=== PATIENT | male | born 1970 | race Two or more races ===

== ENCOUNTER 2019-03-08 08:15 | Day surgery (SDC) | payer OTHER ==
[2019-02-16 10:59] LABS: ABSOLUTE BASOPHILS # (AUTO) 0.1 10^3/uL (0.0-0.2); ABSOLUTE EOSINOPHILS # (AUTO) 0.2 10^3/uL (0.0-0.6); ABSOLUTE LYMPHOCYTES (AUTO) 1.8 10^3/uL (0.5-4.7); ABSOLUTE MONOCYTES (AUTO) 0.4 10^3/uL (0.1-1.4); ABSOLUTE NEUT (AUTO) 5.5 10^3/uL (1.7-8.2); BASOPHILS % (AUTO) 0.9 % (0-2); EOSINOPHILS % (AUTO) 2.8 % (0-6); HEMATOCRIT 41.1 % (37.9-51.0); HEMOGLOBIN 14.7 g/dL (13.5-17.0); LYMPHOCYTES % (AUTO) 21.9 % (13-45); MEAN CORPUSCULAR HEMOGLOBIN 29.9 pg (27.0-33.4); MEAN CORPUSCULAR HGB CONC 35.8 g/dL (32.0-36.0); MEAN CORPUSCULAR VOLUME 83 fl (80-97); MONOCYTES % (AUTO) 5.5 % (3-13); PLATELET COUNT 217 10^3/uL (150-450); RED BLOOD COUNT 4.93 10^6/uL (4.35-5.55); RED CELL DISTRIBUTION WIDTH 13.7 % (11.5-14.0); SEGMENTED NEUTROPHILS % (AUTO) 68.9 % (42-78); TOTAL CELLS COUNTED % (AUTO) 100 %
[2019-02-16 11:20] LABS: ANION GAP 8 (5-19); BLOOD UREA NITROGEN 17 mg/dL (7-20); CALCIUM 9.4 mg/dL (8.4-10.2); CARBON DIOXIDE 30 mmol/L (22-30); CHLORIDE 103 mmol/L (98-107); GLUCOSE 102 mg/dL (75-110); POTASSIUM 4.1 mmol/L (3.6-5.0)
[~2019-03-08 08:15] MED LIST: CEFAZOLIN 1 GM/D5W RTU 1 GM/50 ML RTUPB IV PRN; DEXAMETHASONE SOD PHOSPHATE INJ 4 MG/1 ML VIAL ONE; GLYCOPYRROLATE 1 MG/5 ML VIAL ONE; KETOROLAC TROMETHAMINE 60 MG/2 ML SDV ONE; LACTATED RINGERS 1000 ML IV PRN; NEOSTIGMINE METHYLSULFATE 10 MG/10 ML VIAL ONE; ONDANSETRON HCL INJ/PF 4 MG/2 ML SDV ONE; ROCURONIUM BROMIDE INJ 50 MG/5 ML VIAL IV ONE; SUCCINYLCHOLINE CHLORIDE INJ 200 MG/10 ML VIAL ONE
[2019-03-08] MEDS ORDERED: PROPOFOL INJ 200 MG/20 ML VIAL IV ONE ×2 (08:33→10:50)
[2019-03-08] MEDS ORDERED: FENTANYL CITRATE INJ/PF 100 MCG/2 ML AMPUL ONE ×2 (08:33→13:29)
[2019-03-08] MEDS ORDERED: MIDAZOLAM 2 MG/2 ML INJ ONE ×3 (08:33→11:09)
[2019-03-08] MEDS ORDERED: CEFAZOLIN INJ 1 GM VIAL ONE (10:10)
[2019-03-08] MEDS ORDERED: ALBUTEROL SULFATE 0.083% NEB 2.5 MG/3 ML AMPUL NEB ONE (10:15)
[2019-03-08] MEDS ORDERED: FENTANYL CITRATE INJ/PF 250 MCG/5 ML AMPULE ONE (10:50)
[2019-03-08] MEDS ORDERED: METOCLOPRAMIDE HCL INJ/PF 10 MG/2 ML SDV ONE (11:09)
[2019-03-08] MEDS ORDERED: FAMOTIDINE INJ/PF 20 MG/2 ML SDV IV ONE (11:11)
[2019-03-08] MEDS ORDERED: RINGERS SOLUTION,LACTATED 1,000 ML IV ONE (11:45)
[2019-03-08] MEDS ORDERED: BUPIVACAINE HCL 0.25 % INJ/PF (2.5 MG/1 ML) 30 ML VIAL ONE (12:30)
[2019-03-08] MEDS ORDERED: BUPIVACAINE HCL 0.5%/EPI 1:200000 INJ 1.8 ML CARTRIDGE ONE (12:30)
--- NOTE | 2019-03-08 12:50 | Operative Report ---
Nonrecallable Operative Report DATE OF SURGERY: 03/08/19 PREOPERATIVE DIAGNOSIS: Bilateral inguinal hernia POSTOPERATIVE DIAGNOSIS: Bilateral direct inguinal hernias OPERATION: Laparoscopic repair of bilateral direct inguinal hernia SURGEON: DEJA LOMELI ANESTHESIA: GA TISSUE REMOVED OR ALTERED: None COMPLICATIONS: None ESTIMATED BLOOD LOSS: 5 cc INTRAOPERATIVE FINDINGS: Direct inguinal hernia bilateral PROCEDURE: Patient was brought to the operating room awake alert in stable condition placed in the operative table supine position induced under general anesthesia intubated. The abdomen was prepped and draped in usual sterile manner for the procedure. After appropriate timeout and site verification we commenced the procedure. A curvilinear incision was made infraumbilically dissection was carried down through subcutaneous tissue with Bovie cautery the fascia the rectus muscle was identified transverse incision was then made in the fascia. The muscle was retracted laterally and we gained access to the posterior sheath we then used the Spacemaker balloon placed on top of the posterior sheath to the pubic symphysis we have and insufflated the balloon under direct vision. The working port was then placed after the Spacemaker balloon was removed. 2 5 mm ports were also placed in the midline under direct vision. We turned attention to the right side first we mobilized the peritoneum away cord structures we also identified the Med's ligament the rectus muscle and the epigastric artery patient had a defect in the triangle between the epigastric artery Med's ligament and the rectus muscle. He did not have a indirect inguinal hernia. After mobilizing the cord structures I fashioned a piece of mesh 3 cm wide by 6 cm long with a slit down side we placed into the retroperitoneum we tacked the posterior portion of it to Med's ligament anterior to the rectus muscle laterally to the transversalis muscle we wrapped the cord with the mesh and tacked it again also to the transversalis muscle laterally being careful not to injure the lateral femoral cutaneous nerve. Attention was then turned to the left side similarly the we dissected the peritoneum away from the transversalis muscle laterally continue that inferiorly to identify the cord structures the epigastric artery Med's ligament rectus abdominis muscle was identified the patient had an direct inguinal hernia in the triangle between the epigastric Med's and rectus muscle. Similarly a piece of mesh was fashioned 6 x 3 cm long placed into the retroperitoneum fixed posteriorly to Med's ligament anteriorly to the rectus abdominis muscle and lateral to the transversalis muscle. Both sides showed that the hernia defect was covered and we took care not to injure the lateral femoral cutaneous nerve on either side. We then reduce the pneumoperitoneum we closed the umbilical fascial defect with 0 Vicryl and closed all skin incisions with intracuticular 4-0 Biosyn Steri-Strips completed the procedure estimated blood loss was less than 10 cc sponge needle counts correct x2 the patient was awakened in the operative extubated transferred recovery in stable condition no complications
--- NOTE | 2019-03-08 12:52 | Discharge Summary ---
Discharge Summary (SDC) - Discharge Final Diagnosis: Bilateral inguinal hernias Date of Surgery: 03/08/19 Discharge Date: 03/08/19 Condition: Good [facility]errals: [facility] [[facility] - Respiratory Treatments at Home: Deep Breathing/Coughing, Nebulizer Additional Home Respiratory Instructions: USE YOUR HOME NEB TREATMENTS NEEDED Discharge Activity: Activity As Tolerated, No Driving, No Lifting Over 10 Pounds, No Lifting/Push/Pulling, Slowly Increase Activity, No tub bath Home Care Assistance: None Needed, Provided by Family Report the Following to Your Physician Immediately: Shortness of Breath, Nausea, Vomiting, Increase in Pain, Fever over 101 Degrees, Unusual Bleeding - Patient needs a follow-up in surgical clinic in 10 to 14 days, Redness, Drainage-Foul Smelling, Large Clots, Numbness, IV Site Infection Signs
[2019-03-08] MEDS ORDERED: ACETAMINOPHEN 1,000 MG/100 ML RTUPB IV ONE (13:30)
[2019-03-08] MEDS ORDERED: HYDROCODONE/ACETAMINOPHEN 5-325 MG TABLET ONE (15:20)
[2019-03-08 16:49] VITALS: BP 122/70
== END 2019-03-08 16:59 | disposition home or self-care (01) ==
LOC: OROUT 08:15
PROVIDERS: ATTEND Surgery
DX: K40.20 Bilateral inguinal hernia, without obstruction or gangrene, not specified as recurrent (principal); I10 Essential (primary) hypertension; E07.9 Disorder of thyroid, unspecified; J45.909 Unspecified asthma, uncomplicated; Z79.899 Other long term (current) drug therapy; Z79.51 Long term (current) use of inhaled steroids
CPT/HCPCS: 36415; 85025; 80048; 00840; 49650; C1781; C1713; J2250; J0690; J3490 ×2; J1100; J1885; J3010 ×2; J2765; J2710; J0330; J2405; J2704; S0028; J0131; 840

== ENCOUNTER 2019-10-29 13:41 | Emergency (ER) | payer OTHER ==
--- NOTE | 2019-10-29 14:37 | ER Document Report ---
ED Medical Screen (RME) - General Chief Complaint: Abdominal Pain Stated Complaint: ABDOMINAL PAIN Time Seen by Provider: 10/29/19 14:31 Primary Care Provider: FABRICE REARDON [Primary Care Provider] - Follow up as needed Mode of Arrival: Ambulatory Information source: Patient Notes: 49-year-old presented to ED for left upper abdominal pain. He states [facility] and they told him he might have a bowel obstruction he did have a bowel movement today. He did have a inguinal hernia repair in February. He has a history of IBS reflux inguinal hernia repair colonoscopies and endoscopies asthma cholesterol high blood pressure and hypothyroid. He does not smoke drink or use any drugs. He does have tenderness to the left upper abdomen. He states he does not have a history of a kidney stone. He is alert oriented respirations regular nonlabored speaking in full sentences. I will get blood urine and a CT of the abdomen pelvis to rule out kidney stone. I have greeted and performed a rapid initial assessment of this patient. A comprehensive ED assessment and evaluation of the patient, analysis of test results and completion of medical decision making process will be conducted by an additional ED providers. TRAVEL OUTSIDE OF THE [place] IN LAST 30 DAYS: No - Related Data Allergies/Adverse Reactions: No Known Allergies Allergy (Verified 03/08/19 10:08) Past Medical History - Social History Frequency of alcohol use: None Drug Abuse: None - Past Medical History Cardiac Medical History: Reports: Hx Hypercholesterolemia, Hx Hypertension Denies: Hx Coronary Artery Disease, Hx Heart Attack Pulmonary Medical History: Reports: Hx Asthma - inhaler Denies: Hx Bronchitis, Hx COPD, Hx Pneumonia Neurological Medical History: Denies: Hx Cerebrovascular Accident, Hx Seizures Musculoskeltal Medical History: Denies Hx Arthritis Psychiatric Medical History: Reports: Hx Anxiety - Immunizations Hx Diphtheria, Pertussis, Tetanus Vaccination: Yes - 2012 Physical Exam - Vital signs Vitals: Temp Pulse Resp BP Pulse Ox 98.0 F 69 18 146/77 H 97 10/29/19 13:46 10/29/19 13:46 10/29/19 13:46 10/29/19 13:46 10/29/19 13:46 Course - Vital Signs Vital signs: Temp Pulse Resp BP Pulse Ox 98.0 F 69 18 146/77 H 97 10/29/19 13:46 10/29/19 13:46 10/29/19 13:46 10/29/19 13:46 10/29/19 13:46 Doctor's Discharge - Discharge Referrals: [facility] [[facility] - Follow up as needed
[2019-10-29 14:55] LABS: ABSOLUTE BASOPHILS # (AUTO) 0.1 10^3/uL (0.0-0.2); ABSOLUTE EOSINOPHILS # (AUTO) 0.1 10^3/uL (0.0-0.6); ABSOLUTE LYMPHOCYTES (AUTO) 1.6 10^3/uL (0.5-4.7); ABSOLUTE MONOCYTES (AUTO) 0.4 10^3/uL (0.1-1.4); APPEARANCE,URINE CLEAR; BASOPHILS % (AUTO) 0.8 % (0-2); BILIRUBIN,URINE NEGATIVE (NEGATIVE); COLOR,URINE YELLOW; EOSINOPHILS % (AUTO) 1.2 % (0-6); GLUCOSE, URINE NEGATIVE (NEGATIVE); HEMATOCRIT 42.6 % (37.9-51.0); HEMOGLOBIN 15.3 g/dL (13.5-17.0); KETONES,URINE NEGATIVE (NEGATIVE); LEUKOCYTE ESTERASE,URINE NEGATIVE (NEGATIVE); MEAN CORPUSCULAR HEMOGLOBIN 30.1 pg (27.0-33.4); MEAN CORPUSCULAR HGB CONC 36.1 g/dL (32.0-36.0); MEAN CORPUSCULAR VOLUME 84 fl (80-97); MONOCYTES % (AUTO) 4.4 % (3-13); NITRITE,URINE NEGATIVE (NEGATIVE); PLATELET COUNT 240 10^3/uL (150-450); PROTEIN,URINE NEGATIVE (NEGATIVE); RED BLOOD COUNT 5.09 10^6/uL (4.35-5.55); RED CELL DISTRIBUTION WIDTH 13.3 % (11.5-14.0); SEGMENTED NEUTROPHILS % (AUTO) 73.6 % (42-78); TOTAL CELLS COUNTED % (AUTO) 100 %; URINE SPECIFIC GRAVITY 1.018; UROBILINOGEN,URINE NEGATIVE mg/dL (<2.0); WHITE BLOOD COUNT 8.1 10^3/uL (4.0-10.5)
--- NOTE | 2019-10-29 15:08 | RADIOLOGY REPORT (SQ) ---
EXAM DESCRIPTION: CT ABD/PELVIS NO ORAL OR IV IMAGES COMPLETED DATE/TIME: 10/29/2019 2:49 pm REASON FOR STUDY: Left upper abdominal pain COMPARISON: None. TECHNIQUE: CT scan of the abdomen and pelvis performed without intravenous or oral contrast. Images reviewed with lung, soft tissue, and bone windows. Reconstructed coronal and sagittal MPR images revi ewed. All images stored on PACS. All CT scanners at this facility use dose modulation, iterative reconstruction, and/or weight based d osing when appropriate to reduce radiation dose to as low as reasonably achievable (ALARA). [facility]: Dose Right [facility]: CareDose [facility]: Dose Right [facility]: Teradose 4D [facility]: Smart [employer] RADIATION DOSE: CT Rad equipment meets quality standard of care and radiation dose reduction techniq ues were employed. CTDIvol: 5.8 mGy. DLP: 315 mGy-cm.mGy. LIMITATIONS: None. FINDINGS: LOWER CHEST: No significant findings. No nodules or infiltrates. NON-CONTRASTED LIVER, SPLEEN, ADRENALS: Evaluation limited by lack of IV contrast. No identified sign ificant masses. PANCREAS: No masses. No peripancreatic inflammatory changes. GALLBLADDER: No identified stones by CT criteria. No inflammatory changes to suggest cholecystitis. RIGHT KIDNEY AND URETER: No suspicious masses. Assessment limited by lack of IV contrast. Tiny exoph ytic cyst. No significant calcifications. No hydronephrosis or hydroureter. LEFT KIDNEY AND URETER: No suspicious masses. Assessment limited by lack of IV contrast. No signifi cant calcifications. No hydronephrosis or hydroureter. AORTA AND RETROPERITONEUM: No aneurysm. No retroperitoneal masses or adenopathy. BOWEL AND PERITONEAL CAVITY: No focal bowel wall thickening. No evidence of intestinal obstruction. Few scattered colonic diverticula. APPENDIX: Not identified. PELVIS, BLADDER, AND ABDOMINAL WALL:Unremarkable urinary bladder. Small fat containing right inguina l hernia. Mild irregularity and stranding about the left inguinal region, likely also additional sma ll inguinal hernia. Scattered pelvic phleboliths. BONES: No acute bony abnormality. Indeterminate 11 mm sclerotic lesion within the right ilium. OTHER: No other significant finding. IMPRESSION: 1. Small fat containing right inguinal hernia. Mild stranding about the left inguinal region, likely additional left-sided inguinal hernia. Recommend correlation with physical exam. 2. No other evidence of acute intra-abdominal/pelvic process. 3. Indeterminate 11 mm sclerotic focus within the right ilium. Correlation with priors or bone scan could be considered for further characterization. COMMENT: Quality ID # [id number]: Final reports with documentation of one or more dose reduction techniques (e.g., Automated exposure control, adjustment of the mA and/or kV according to patient size, use of iterative reconstruction technique) TECHNICAL DOCUMENTATION: JOB ID: [id number] 2010 [employer]- All Rights Reserved Reading location - IP/workstation name: [email or web address]
[2019-10-29 15:15] LABS: ALBUMIN 4.8 g/dL (3.5-5.0); ALKALINE PHOSPHATASE 77 U/L (38-126); ANION GAP 12 (5-19); ASPARTATE AMINO TRANSFERASE 31 U/L (17-59); BILIRUBIN,DIRECT 0.2 mg/dL (0.0-0.4); BLOOD UREA NITROGEN 15 mg/dL (7-20); CALCIUM 9.5 mg/dL (8.4-10.2); CARBON DIOXIDE 31 mmol/L (22-30); CHLORIDE 104 mmol/L (98-107); GLUCOSE 110 mg/dL (75-110); POTASSIUM 4.4 mmol/L (3.6-5.0); TOTAL PROTEIN 7.8 g/dL (6.3-8.2)
--- NOTE | 2019-10-29 19:56 | ER Document Report ---
ED General - General Chief Complaint: Abdominal Pain Stated Complaint: ABDOMINAL PAIN Time Seen by Provider: 10/29/19 14:31 Primary Care Provider: FABRICE REARDON [Primary Care Provider] - Follow up as needed Mode of Arrival: Ambulatory Notes: 49 year old male presents to the ED complaining of left upper quadrant abdominal pain that is been going on for the past 2 weeks. Patient states he was or iginally seen by the CO and told to go to [facility], he had an x-ray performed a few days ago that he was told may have showed a small bowel obstruction but they were uncertain. [facility] and telling [facility] that he had persistent left upper quadrant abdominal pain without any nausea, vomiting, diarrhea, constipation and continues to have normal bowel movements he was told to come to the emergency department for further evaluation. Patient does have a history of irritable bowel syndrome, states that the symptoms are somewhat similar but he is uncertain. He did have an inguinal hernia repair performed bilaterally in February. Denies any lower abdominal pain. TRAVEL OUTSIDE OF THE [place] IN LAST 30 DAYS: No - Related Data Allergies/Adverse Reactions: No Known Allergies Allergy (Verified 10/29/19 15:24) Past Medical History - General Information source: Patient - Social History Smoking Status: Never Smoker Frequency of alcohol use: None Drug Abuse: None Family History: Reviewed & Not Pertinent - Past Medical History Cardiac Medical History: Reports: Hx Hypercholesterolemia, Hx Hypertension Denies: Hx Coronary Artery Disease, Hx Heart Attack Pulmonary Medical History: Reports: Hx Asthma - inhaler Denies: Hx Bronchitis, Hx COPD, Hx Pneumonia Neurological Medical History: Denies: Hx Cerebrovascular Accident, Hx Seizures Musculoskeletal Medical History: Denies Hx Arthritis Psychiatric Medical History: Reports: Hx Anxiety - Immunizations Hx Diphtheria, Pertussis, Tetanus Vaccination: Yes - 2012 Review of Systems - Review of Systems Constitutional: No symptoms reported Gastrointestinal: See HPI -: Yes All other systems reviewed and negative Physical Exam - Vital signs Vitals: Temp Pulse Resp BP Pulse Ox 98.0 F 69 18 146/77 H 97 10/29/19 13:46 10/29/19 13:46 10/29/19 13:46 10/29/19 13:46 10/29/19 13:46 Interpretation: Hypertensive - Notes Notes: GENERAL: Alert, interacts well. No acute distress. HEAD: Normocephalic, atraumatic EYES: Pupils equal, round and reactive to light, extraocular movements intact. ENT: Oral mucosa moist, tongue midline. NECK: Full range of motion, supple, trachea midline. LUNGS: Clear to auscultation bilaterally, no wheezes, rales or rhonchi, no respiratory distress. HEART: Regular rate and rhythm, no murmurs, gallops, rubs. ABDOMEN: Soft, nontender, nondistended, bowel sounds present in all 4 quadrants. GENITAL: Cremasteric reflex intact bilaterally, no testicular tenderness to palpation, very small bulge in the left femoral area with bearing down and doing a sit up. No hernia defect is able to be palpated. No inguinal hernia noted. EXTREMITIES: Moves all 4 extremities spontaneously, no edema, radial and dorsalis pedis pulses 2/4 bilaterally. No cyanosis. NEUROLOGICAL: Alert and oriented x3, normal speech. PSYCH: Normal mood, normal affect. SKIN: Warm, Dry, normal turgor, no rashes or lesions noted. Course - Re-evaluation Re-evalutation: 10/29/19 20:27 CBC unremarkable, CMP shows slightly elevated sodium and slightly elevated creatinine otherwise unremarkable, urinalysis unremarkable. Abdomen/Pelvis CT 10/29/19 14:36 IMPRESSION: 1. Small fat containing right inguinal hernia. Mild stranding about the left inguinal region, likely additional left-sided inguinal hernia. Recommend correlation with physical exam. 2. No other evidence of acute intra-abdominal/pelvic process. 3. Indeterminate 11 mm sclerotic focus within the right ilium. Correlation with priors or bone scan could be considered for further characterization. No evidence of incarcerated or strangulated hernia on physical examination. No indication for surgical consultation for the hernias visualized on the CT scan. Discussed with patient that I do not have a specific cause for his abdominal pain in his upper abdomen however given his history of irritable bowel syndrome it would be reasonable to consider a course of MiraLAX as he is not having diarrhea at this time and he tends to have more constipation prone IBS. Patient is agreeable to this plan, will return for fevers, worsening pain, bleeding or any new or concerning symptoms. Discharged home. - Vital Signs Vital signs: Temp Pulse Resp BP Pulse Ox 98.0 F 69 18 146/77 H 97 10/29/19 13:46 10/29/19 13:46 10/29/19 13:46 10/29/19 13:46 10/29/19 13:46 - Laboratory Result Diagrams: 10/29/19 14:39 10/29/19 14:39 Laboratory results interpreted by me: 10/29/19 10/29/19 10/29/19 14:39 14:39 14:39 MCHC 36.1 H Sodium 147.0 H Carbon Dioxide 31 H Creatinine 1.26 H Urine Ascorbic Acid 40 H Discharge - Discharge Clinical Impression: LUQ pain Condition: Stable Disposition: HOME, SELF-CARE Additional Instructions: Abdominal Pain There are many causes of abdominal pain. Pain can mean a serious problem requiring surgery (such as appendicitis). It can also be an innocent problem that goes away on its own (such as a viral infection). Often, time must pass to determine the cause of pain. The physician does not feel that hospitalization is necessary, at present. Things may change within the next 24 hours. Call the doctor or come back for re- examination if any problems occur, such as: (1) Pain that becomes more severe, steady, or becomes concentrated in one specific area. Also, pain that is more severe with movement or coughing. (2) Vomiting that persists or becomes more frequent. (3) Blood in the vomitus, urine, or bowel movements. Blood in the stool may have a tarry or black appearance. (4) Shaking chills or fever greater than 100 degrees F. (5) The abdomen becomes more distended or swollen. (6) Bowel movements cease. (7) Failure to improve as expected. Your CT scan did not show anything that explains the pain in your left upper quadrant. It could be coming from hard stool or constipation. Please dissolve 1 scoop of MiraLAX in a glass of water once a day to treat constipation. You may increase to twice a day if needed to create soft bowel movements and you may decrease to every other day if you develop diarrhea. Please try this for 1 to 2 weeks. If it does not help you may stop. If your pain worsens, you develop fevers, blood in your stool or any new or concerning symptoms please return to the emergency department. Your CAT scan does show some changes around your hernia. There is no sign of infection. On physical examination you have a slight bulge in the area however there is no evidence of an acute tear or any hernia that is incarcerated or "stuck." Please return to the emergency department for any new or concerning symptoms. Referrals: [facility] [[facility]] - Follow up as needed
[2019-10-29 20:24] VITALS: BP 134/84
== END 2019-10-29 20:25 | disposition home or self-care (01) ==
LOC: ER 13:41
DX: R10.12 Left upper quadrant pain (principal); I10 Essential (primary) hypertension; J45.909 Unspecified asthma, uncomplicated
CPT/HCPCS: 36415; 74176; 80053; 81001; 85025; 99284